=== PATIENT | female | born 1975 | race Caucasian/White ===

== ENCOUNTER → 2018-02-20 16:24 | Outpatient (CLI) | payer BC, SELFPAY ==
[2018-02-25 14:43] LABS: HPV Reflexed? NOT INDICATED
--- OUTSIDE RECORDS SUMMARY | 2018-04-17 16:20 | XMS RPT_ITS ---
:1975 Author Organization [facility] Care Team Providers Name Role Phone Anabelle Pineda Attending Unavailable PROBLEMS PROBLEMS DATE TYPE CONDITION / CODE ATTENDING STATUS SOURCE 02/20/2018 Unknown Z12.4 - Anabelle Pineda Active [place] Encounter for Community screening for Hospital malignant Repository neoplasm of cervix / Z12.4(ICD-10) PROCEDURES PROCEDURES No Procedure Records FoundRESULTS RESULTS PAP I-G W/RFX HRHPV Collected: 02/20/2018 Status: F Source: TEN 2:30 PM [facility] H[facility]PITAL REPOSITORY Order Comment: CYTOLOGY INFORMATION: - CLINICAL INFORMATION: - DATE LMP/MENOPAUSE: 02/02/18 LMP - COLLECTION VIAL: Thin Prep Vial - TINTER PHOTOGRAPH SOURCE: CERVICAL/ENDOCERVICAL - COLLECTION TECHNIQUE: BRUSH/SPATULA Specimen Comment: [id number] Specimen Comment: Source.............Cervix;Endocervix Specimen Comment: LMP / Prev Treat...DCF=[id number] Specimen Comment: No. of containers..01 ThinPrep Vial TYPE CODE TESTS RESULT OUT OF RANGE REFERENCE UNITS LAB L7400.0800 . Normal DIAGN Comment Result Comment: NEGATIVE FOR INTRAEPITHELIAL LESION AND MALIGNANCY. LAB L7400.0900 . Normal ADEQ Comment Result Comment: Satisfactory for evaluation. Endocervical and/or squamous metaplastic cells (endocervical component) are present. LAB L7400.1400 . Normal PERFORM Comment Result Comment: Tigist Pak, Clerk Analyst (ASCP) LAB L7400.2575 . Normal TEST METHOD Comment Result Comment: This liquid based ThinPrep(R) pap test was screened with the use of an image guided system. LAB L7400.2600 . Normal . COMM LAB L7400.2700 . Normal PAPSMR Comment Result Comment: The Pap smear is a screening test designed to aid in the detection of premalignant and malignant conditions of the uterine cervix. It is not a diagnostic procedure and should not be used as the sole means of detecting cervical cancer. Both false-positive and false-negative reports do occur. LAB L7400.2800 . Normal HPV RFLX Comment Result Comment: The HPV DNA reflex criteria were not met with this specimen result therefore, no HPV testing was performed. Performed at: - [facility] [id number] [employer] And [employer] Supervisor: Sonia Cordon MD, Phone: [phone] Performed By: #### L7400.0350 #### [facility] (refer to report for specific site) refer to report for address and phone number ALLERGIES ALLERGIES No Allergies Records FoundENCOUNTERS ENCOUNTERS ADMIT/DISCHARGE ACCOUNT ADMITTING ENCOUNTER LOCATION SOURCE NUMBER CLASS 02/20/2018 [id number] [facility] [address] [place] [address] ing:[facility] Repository PAYERS PAYERS ENCOUNTER GUARANTOR PAYER SUBSCRIBER SOURCE 02/20/2018 Paul [place] Primary Paul [place] [id number] Insurance:[address] Number: : [id number] [id number] Repository [address]: [phone]) Date:5821-12-49[phone] () [id number], [place] [address]ZM: 02/20/2018 Secondary NOT GIVENUNK [place] Insurance:SELF PAY [facility] Number: Effective Repository Date:2018-02-20
== END ==
PROVIDERS: Visit Provider Obstetrics & Gynecology
DX: Z12.4 Encounter for screening for malignant neoplasm of cervix (principal)
CPT/HCPCS: 88175; G0145

== ENCOUNTER → 2018-05-29 14:30 | Outpatient (CLI) | payer BC, SELFPAY ==
--- NOTE | 2018-05-29 14:34 | BI_ITS ---
MAMMOGRAPHY - BILATERAL SCREENING REASON FOR EXAM: Female, 42 years old. Routine annual screening examination. PERTINENT HISTORY: Sister with breast cancer. TECHNIQUE: Digital bilateral breast karlie (3D mammographic acquisition) in the CC and MLO projections. 2-D mediolateral oblique (MLO) and craniocaudad (CC) views of both breasts were obtained. CAD: Full Field Digital Mammography with Computer Added Detection was performed. COMPARISON: Comparison is made with prior study dated June 28, 2016 and April 26, 2015. FINDINGS: Breast Composition: The breasts are heterogeneously dense, which may obscure small masses. There are no dominant masses or suspicious calcifications. Stable small bilateral axillary lymph nodes. No other significant abnormalities are identified. There has been no significant change since the prior study. BI/SCREENING MAMM (CAD), BILAT IMPRESSION: Stable bilateral screening mammogram. Yearly follow-up mammogram recommended. (A) ASSESSMENT CATEGORY: BIRADS Category 2: Benign. A letter regarding these results will be sent to the patient by the facility within 30 days. Approximately 10% of breast cancers are not detected by mammography. A normal mammogram should not delay biopsy of a clinically suspicious abnormality. [id number] Electronically Signed: Jackson Wright, at 8:50 EDT , Service support ,
== END ==
PROVIDERS: Family Provider Family Medicine; PCP Family Medicine; Referring Provider Obstetrics & Gynecology; Visit Provider Obstetrics & Gynecology
DX: Z12.31 Encounter for screening mammogram for malignant neoplasm of breast (principal); Z80.3 Family history of malignant neoplasm of breast
CPT/HCPCS: 77063; 77067

== ENCOUNTER → 2021-07-17 | Outpatient (CLI) | payer BC, SELFPAY ==
[2021-07-17 09:30] LABS: Hemoglobin A1c 4.8 % (3.8-5.6)
[2021-07-17 09:58] LABS: Estradiol 23.1 pg/mL; Follicle Stimulating Hormone 13.6 mIU/mL; Luteinizing Hormone 8.3 mIU/mL; Prolactin 19.5 ng/mL; T4 Free Direct 1.13 ng/dL (0.76-1.46); Thyroid Stim Hormone (TSH) 1.99 uIU/mL (0.358-3.74)
[2021-07-23 17:23] LABS: HPV APTIMA, High Risk Negative (Negative)
== END | disposition home or self-care (01) ==
LOC: WOBLAB 09:00
PROVIDERS: PCP Family Medicine; Visit Provider Student in an Organized Health Care Education/Training Program
DX: Z12.4 Encounter for screening for malignant neoplasm of cervix (principal); N92.6 Irregular menstruation, unspecified
CPT/HCPCS: 36415; 82670; 83001; 83002; 83036; 84146; 84439; 84443; 87624; 88175; G0145

== ENCOUNTER → 2021-08-08 | Outpatient (CLI) | payer BC, SELFPAY ==
--- NOTE | 2021-08-08 07:19 | BI_ITS ---
MAMMOGRAPHY - BILATERAL SCREENING REASON FOR EXAM: Female, 45 years old. Routine annual screening examination. PERTINENT HISTORY: Sister with breast cancer. TECHNIQUE: Digital bilateral breast valente (3D mammographic acquisition) in the CC and MLO projections. 2-D mediolateral oblique (MLO) and craniocaudad (CC) views of both breasts were obtained. CAD: Full Field Digital Mammography with Computer Added Detection was performed. COMPARISON: Comparison is made with prior study dated 05/29/2018 and 06/28/2016. FINDINGS: Breast Composition: The breasts are heterogeneously dense, which may obscure small masses. There are no dominant masses or suspicious calcifications. Stable benign-appearing bilateral axillary lymph nodes. No other significant abnormalities are identified. There has been no significant change since the prior study. BI/SCRN MAMM (CAD)W/VALENTE BILAT IMPRESSION: Stable bilateral screening mammogram. Yearly follow-up mammogram recommended. (A) ASSESSMENT CATEGORY: BIRADS Category 2: Benign. A letter regarding these results will be sent to the patient by the facility within 30 days. Approximately 10% of breast cancers are not detected by mammography. A normal mammogram should not delay biopsy of a clinically suspicious abnormality. [id number] Electronically Signed: Jackson Wright MD at 8:32 EDT ,
== END | disposition home or self-care (01) ==
LOC: OPBI 07:17
PROVIDERS: PCP Family Medicine; Referring Provider Student in an Organized Health Care Education/Training Program; Visit Provider Student in an Organized Health Care Education/Training Program
DX: Z12.31 Encounter for screening mammogram for malignant neoplasm of breast (principal); Z80.3 Family history of malignant neoplasm of breast
CPT/HCPCS: 77063; 77067

== ENCOUNTER → 2021-10-26 | Outpatient (CLI) | payer BC, SELFPAY ==
[2021-10-26 13:39] LABS: Cholesterol 199 mg/dL (200); High Density Lipoprotein 58 mg/dL; Triglycerides 71 mg/dL; Very Low Density Lipoprotein 14 mg/dL (5-40)
== END | disposition home or self-care (01) ==
LOC: LAB 12:01
PROVIDERS: PCP Family Medicine; Referring Provider Family Medicine; Visit Provider Family Medicine
DX: Z00.00 Encounter for general adult medical examination without abnormal findings (principal)
CPT/HCPCS: 36415; 80061

== ENCOUNTER 2021-11-08 07:03 | Day surgery (SDC) | payer BC, SELFPAY ==
[2021-11-02 11:14] LABS: Hematocrit 39.9 % (37-47); Hemoglobin 13.7 g/dL (12.0-15.0); Mean Corp Hgb Conc 34.3 g/dL (32-36); Mean Corpuscular Volume 96.1 fL (81-99); Mean Platelet Vol. 9.2 fl (6.2-12.0); Platelet Count 418 K/mm3 (150-450); RBC Distribution Width CV 12.1 % (11.6-14.6); RBC Distribution Width SD 42.8 fl (35.1-43.9); Red Blood Count 4.15 M/mm3 (4.2-5.4); White Blood Count 4.7 K/mm3 (4.4-11.0)
--- NOTE | 2021-11-08 06:38 | PCM.HP.BLA ---
History and Physical Date of Admission: 11/08/21 HPI: Date of Surgery: 11/08/21 Reason for surgery: abnormal bleeding, uterus and fibroids. ROS: Const: Denies fatigue, fever, hot flashes, insomnia, weight gain and weight loss. CV: Denies irregular heartbeat, pain and shortness of breath. Resp: Denies difficulty breathing, cough and shortness of breath. : Denies abnormal bleeding, bloating, decreased interest in sex and pruritus. Lochia: Patient denies any discharge or clotting. Denies dysuria, frequency, hematuria, nocturia, urgency and urinary leakage. Neuro: Denies dizziness, fainting and seizures. Beto/Lymph: Denies easy bleeding and excessive bleeding. Allergy/Immuno: Denies new allergies. Meds: Calcium 600 + Minerals 600-200 MG-Unit 1 tab by mouth every day Probiotic Acidophilus 1 tab by mouth every day Spironolactone 50 mg 1 tabs by mouth every day Vitamin D3 Complete 1 tab by mouth every day Zyrtec Allergy 10 mg 1 tab by mouth every day Allergies: Penicillins, PCN PMH: None : (2).Parity: Full term (2), Living (2). Menstrual History:Menarche: Started At Age 15. LMP: 10/23/2021.Period Interval: Cycles Irregularly - Q2-4 weeks for 1 to 2 years. Contraceptive Method: vasectomy Surgical History: denies FH: Father: Osteoarthritis. Mother: Hypertension. Sister 1: Breast Cancer - diagnosed at 41 Congenital Heart Disease. Paternal Grandfather: Prostate Cancer - diagnosed at 71. Maternal Grandfather: Myocardial Infarction (NM) - 45, . Reviewed and updated. SH: Personal Habits:Tobacco Use: Patient has never smoked.Alcohol: Rarely consumes alcohol.Drug Use: Denies Drug Use. BP: 118/78 Ht: 64.50 5'4.50 Wt: 154lb 6oz Wt Prior: 152lb 0oz as of 08/14/21 Wt Dif: +2lb 6.0oz BMI: 26.1 LMP: 10/23/21 Exam: Const: Appears healthy and well developed. No signs of acute distress present. Alert and oriented x 3. Patient is well behaved and cooperative. Resp: Respiration rate is normal. Inspection of chest reveals AP is unremarkable and no chest wall deformity. CV: Rate is regular. Rhythm is regular. Abdomen: Abdomen is soft, nontender, and nondistended without guarding, rigidity, rebound tenderness or organomegaly. Assessment/Plan: Planned for hysteroscopy, dilation and curettage, endometrial ablation with Autumn for abnormal uterine bleeding, menorrhagia, irregular menses. Discussed r/b/a. Risks include, but are not limited to: risk of bleeding to the point of transfusion, infection, injury to surrounding tissue (bowel/bladder/uterine perforation), VTE, ICU admission. Pt aware and consented. All questions answered.
[2021-11-08 07:32] LABS: Internal QC Validated? YES +Cl - CLEAR BKGD; Pregnancy, Urine Negative Negative
[2021-11-08 07:35] VITALS: BP 111/69; PULSE 74; RESP 16; TEMP 37.1; O2SAT 99; BMI 25.2
[2021-11-08] MEDS: Lactated Ringers 1,000 ML 15 ML IV (07:44)
--- NOTE | 2021-11-08 08:25 | EMB_PTH ---
PATIENT: GWEN CONTRERAS LOC: [facility] U#:[id number] AGE/SX: 46/F ROOM: RE11/08/[address]: Dr. Yoselyn Cobos DO : 1975 BED: DIS: 11/08/2021 SPEC #: [id number] RECD: 11/08/21 09:55 STATUS: ROSE REJacquelyn #: [id number] MAYRA: 11/08/21 08:[address]: Yoselyn Cobos DEPT: SURGICAL PATHOLOGY RECD BY: Jennifer Barbosa ENTERED: 11/08/21 12:09 SP TYPE: ENDOM BX/C MARIAA DR: Dr. Michelle Beaver MD Tissues: A - Endometrium, NOS B - Endometrium, NOS Procedures: Surgery Specimen Level IV HEADER OPERATION: Hysteroscopy, D&C dustin PRE-OP DIAGNOSIS: Abnormal uterine bleeding, menorrhagia TISSUE SUBMITTED: A. Endometrial currettings, B. Additional endometrial currettings MICROSCOPIC DIAGNOSIS A. 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 B. 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 FLACO 11/09/2021 COMMENT Case has been reviewed in consultation with Dr. Bullock who concurs with the above diagnosis. IDC:AM MICROSCOPIC DESCRIPTION Slides are reviewed. GROSS DESCRIPTION A. Received in formalin is one container labeled with the patient name and designated endometrial currettings. The specimen consists of multiple fragments of hemorrhagic soft tissue mixed with mucoid tissue measuring in aggregate 3 x 2.5 x 0.2 cm. The specimen is totally submitted in one cassette. B. Received in formalin is one container labeled with the patient name and designated additional endometrial currettings. The specimen consists of multiple fragments of hemorrhagic soft tissue mixed with blood clots measuring in aggregate 3 x 2.5 x 0.3 cm. The specimen is totally submitted in one cassette. / FLACO:fawad 11/08/21 TC:5 CPT:95466 x2
--- NOTE | 2021-11-08 08:40 | PCM.OPRPT ---
Report of Operation Date of Procedure: 11/08/21 Pre-Operative Diagnosis: Abnormal uterine bleeding Post-Operative Diagnosis: Abnormal uterine bleeding Surgery/Procedure Performed:: Hysteroscopy, dilation and curettage, attempted endometrial ablation with Autumn Description of Surgical Findings:: Normal-appearing external genitalia. Minimal uterine descensus. Uterus sounded to 10 cm. Long endocervical canal. Type of Anesthesia: MAC Specimen's removed: Endometrial curettings Estimated Blood Loss (mL): 5 cc Fluids Replaced: 800cc Description of Procedure: Indication/risk/benefits: 46-year-old female with abnormal uterine bleeding plan for hysteroscopy, dilation and curettage, endometrial ablation. All risk, benefits, alternatives discussed with patient. Risk include but are not limited to: Risk bleeding twin transfusion, infection, injury to surrounding tissue including bowel/bladder/uterine perforation, VTE, ICU admission. Patient were consented Procedure: Patient taken to the operating room placed under MAC anesthesia. Patient placed in dorsolithotomy position prepped and draped in usual sterile fashion. Weighted speculum placed in posterior vagina and Allis clamps used to grasp anterior lip of the cervix. Cervix sequentially dilated. Uterus sounded to 10 cm. Hysteroscope placed through cervical canal with inspection of endometrial cavity which appeared to have thin endometrial lining slightly narrow cavity. Endometrial curettage completed a 360 degree manner. Autumn device opened. Cavity length initially set to 5 cm. Autumn device array unable to fully deploy. Changed cavity length to both 4-1/2 and 4 cm. Again Autumn device unable to fully deployed. CO2 assessment passed without insufflating cervical balloon. Hysteroscope replaced, no false tracts were noted on inspection. Multiple attempts made to open device array, unable to fully open and deployed. Based on this and immediate CO2 assessment passage without insufflating cervical balloon, decision to not complete ablation was made. Weighted speculum removed, Allis clamp removed. Cervix hemostatic. At the end of the procedure all needle, lap, sponge counts were correct. No urine output measured Complications none
--- NOTE | 2021-11-08 08:41 | DCINST_ITS ---
Discharge Instructions Diet Discharge Diet: No restrictions Activity Discharge Activity: Return to Normal Activity and May Shower May resume sexual activity in: 2 weeks Weight Bearing Status: Weight bearing as tolerated Lifting Restrictions: None Dressing / Incision Call your doctor if you observe: Fever of 101 or Higher, Change in Color, Inability to urinate, Using more than 1 pad per hour, Shortness of breath, Dizziness, Swelling in the ankles, Chest pain and Calf discomfort Follow Up Care Please Follow Up With: Yoselyn Cobos DO When: 1-2 week postoperative visit Test Results: Test results from this visit will be discussed in further detail at your follow- up appointment, if applicable. Discharge Plan Admission Primary Reason for Your Visit: Dilation and curettage Attending Provider: Yoselyn Cobos Primary Care Provider: Michelle Beaver Discharge Orders/Prescriptions Prescriptions: No Action cetirizine [Zyrtec] 10 mg Tablet 10 mg PO DAILY cholecalciferol (vitamin D3) [Vitamin D3] 25 mcg (1,000 unit) Capsule 25 mcg PO DAILY spironolactone 50 mg Tablet 50 mg PO DAILY Referrals / Follow Up: Michelle Beaver MD [Primary Care Provider] - Disposition Disposition (needs filled in before D/C Order can be placed): Home, Self Care
[2021-11-08 09:26] VITALS: BP 100/63; BP 111/69; PULSE 88; RESP 16; TEMP 36.7; O2SAT 98
[2021-11-08 09:30] VITALS: BP 106/70; BP 111/69; PULSE 80; RESP 16; O2SAT 100
[2021-11-08 09:36] VITALS: BP 105/75; BP 111/69; PULSE 74; RESP 16; O2SAT 100
[2021-11-08 09:40] VITALS: BP 111/69; BP 99/60; PULSE 84; RESP 16; TEMP 36.7; O2SAT 100
[2021-11-08 10:25] VITALS: BP 111/69; BP 123/79; PULSE 78; RESP 16; TEMP 36.6; O2SAT 100
== END 2021-11-08 10:28 | disposition home or self-care (01) ==
LOC: SDC 07:06 → AC 07:06
PROVIDERS: Anesthesiology; PCP Family Medicine; Referring Provider Student in an Organized Health Care Education/Training Program; Visit Provider Student in an Organized Health Care Education/Training Program
PROC: 0U5B8ZZ Destruction of Endometrium, Via Natural or Artificial Opening Endoscopic (ICD-10-PCS; CPT 58558; principal; 2021-11-08 08:10)
DX: N92.0 Excessive and frequent menstruation with regular cycle (principal)
CPT/HCPCS: 58558; 00952; 36415; 81025; 85027; 86850; 86900; 86901; 88305; J7120; J2405

== ENCOUNTER → 2021-11-23 | Outpatient (CLI) | payer BC, SELFPAY ==
[2021-12-01 17:17] LABS: HPV APTIMA, High Risk Negative (Negative)
== END | disposition home or self-care (01) ==
LOC: LABSPEC 13:59
PROVIDERS: PCP Family Medicine; Visit Provider Student in an Organized Health Care Education/Training Program
DX: Z12.4 Encounter for screening for malignant neoplasm of cervix (principal)
CPT/HCPCS: 87624; 88175; G0145

== ENCOUNTER → 2023-08-29 | Outpatient (CLI) | payer BC, SELFPAY ==
--- NOTE | 2023-08-29 10:49 | BI_ITS ---
MAMMOGRAPHY - BILATERAL SCREENING REASON FOR EXAM: Female, 47 years old. Routine annual screening examination. PERTINENT HISTORY: Sister with breast cancer. TECHNIQUE: Digital bilateral breast valente (3D mammographic acquisition) in the CC and MLO projections. 2-D mediolateral oblique (MLO) and craniocaudad (CC) views of both breasts were obtained. CAD: Full Field Digital Mammography with Computer Added Detection was performed. COMPARISON: Comparison is made with prior study August 08, 2021 and May 29, 2018. FINDINGS: Breast Composition: The breasts are heterogeneously dense, which may obscure small masses. There are no dominant masses or suspicious calcifications. Stable benign-appearing bilateral axillary lymph nodes. No other significant abnormalities are identified. There has been no significant change since the prior study. BI/SCRN MAMM (CAD)W/VALENTE BILAT IMPRESSION: Stable bilateral screening mammogram. Yearly follow-up mammogram recommended. (A) ASSESSMENT CATEGORY: BIRADS Category 2: Benign. A letter regarding these results will be sent to the patient by the facility within 30 days. Approximately 10% of breast cancers are not detected by mammography. A normal mammogram should not delay biopsy of a clinically suspicious abnormality. [id number] Electronically Signed: Jackson Wright MD at 11:48 EDT ,
== END | disposition home or self-care (01) ==
LOC: OPBI 10:48
PROVIDERS: PCP Family Medicine; Referring Provider Family Medicine; Visit Provider Family Medicine
DX: Z12.31 Encounter for screening mammogram for malignant neoplasm of breast (principal)
CPT/HCPCS: 77063; 77067

== ENCOUNTER 2023-10-24 05:36 | Day surgery (SDC) | payer BC, SELFPAY ==
[2023-10-24] VITALS (8 sets, daily range): BP systolic 97–131; BP diastolic 57–79; PULSE 74–88; RESP 16; TEMP 36.8–37.4; O2SAT 98–100; BMI 26.2
[2023-10-24] MEDS: Lactated Ringers 1,000 ML 15 ML IV (06:03)
[2023-10-24 06:07] LABS: Internal QC Validated? YES +Cl - CLEAR BKGD; Pregnancy, Urine Negative Negative; Record Kit Lot#,Urine Preg 772476
--- NOTE | 2023-10-24 06:24 | PCM.PRE.AN2 ---
ASA Classification* ASA Classification ASA Classification: 1 Assessment & Plan Anesthesia* Anesthesia Assessment Anesthesia Assessment: Discussed sedation and/or anesthesia options, risks, benefits, and alternatives with patient/parents/legal guardian/POA. Questions invited. The patient/parents/legal guardian/POA seems to understand and agrees to proceed with anesthesia plan. Reviewed the physical assessment, medical history, allergy history and patient home medications list prior to surgery/procedure/anesthetic and documented any changes. Performed airway and anesthesia risk assessments. Anesthesia Type Anesthesia Type: MAC History Source History Obtained from:: Patient and Chart Anesthesia Focused Assessment* Temperature: 98.7 F Pulse Rate: 78 Blood Pressure: 131/79 Respiratory Rate: 16 Pulse Ox: 98 Oxygen Delivery Method: Room Air Airway Assessment Mouth opens: >3 cm Mallampati Score: II Teeth Condition: Caps/Crowns (Left lower molars and is tight ) Neck Range of motion (ROM): Full ROM Focused Labs Anesthesia Preop lab: CBC WBC 4.7 K/mm3 (4.4-11.0) 11/02/21 09:46 RBC 4.15 M/mm3 (4.2-5.4) L 11/02/21 09:46 Hgb 13.7 g/dL (12.0-15.0) 11/02/21 09:46 Hct 39.9 % (37-47) 11/02/21 09:46 Plt Count 418 K/mm3 (150-450) 11/02/21 09:46 CHEMISTRY Glucose 69 mg/dL (70-110) L 07/07/13 11:18 TSH 1.99 uIU/mL (0.358-3.74) 07/17/21 09:01 COAG Urine Test Negative Negative 10/24/23 05:45 Pre-Assessment Diagnosis/Proposed Procedure Planned Operative Procedure(s): CSCOPE Anesthesia History Anesthesia History - knocker out: Anesthesia History - knocker out Hx Hospitalization No 10/21/23 10:02 Any Problems With Anesthesia No 10/21/23 10:02 Cholinesterase deficiency No 10/21/23 10:02 You/Your Family Experience No 10/21/23 10:02 fever (hyperthermia) with Relationship Recent Exposure to Contagious No 10/24/23 05:55 Disease Does patient have nerve No 10/21/23 10:02 stimulator Patient instructed to have device shut off --Does patient have Pacemaker No 10/24/23 05:55 or ICD? When Was Last Pacemaker Check QUESTION #4 FULL TEXT: You/Your Family Experience fever (hyperthermia) with Anesthesia Last Oral Intake Last Oral intake: Last Oral Intake NPO since 23:00 10/24/23 05:55 Meds taken in AM with sips of No 10/24/23 05:55 water? Meds patient instructed to take am of surgery PONV PONV - knocker out: PONV - knocker out Female Yes 10/21/23 10:02 HX of Motion Sickness Yes 10/21/23 10:02 HX of N/V After Surgery No 10/21/23 10:02 Non-Smoker Yes 10/21/23 10:02 Duration of Surgery greater No 10/21/23 10:02 than 60 minutes Number of Risk Factors 3 10/21/23 10:02 PONV Score Moderate Risk 10/21/23 10:02 Height & Weight Height & Weight: Anesthesia: Height & Weight Height 5 ft 5 in 10/24/23 05:55 Weight: 71.4 kg 10/24/23 05:55 Body Mass Index (BMI) 26.2 10/24/23 05:55 Respiratory Assessment Respiratory Assessment - knocker out: Respiratory Tract Infection Hx - knocker out Hx Respiratory Tract Infection No 10/21/23 10:02 STOP Sleep Apnea STOP Sleep Apnea - knocker out: STOP Sleep Apnea - knocker out Hx Hypertension No 10/21/23 10:02 Hx Sleep Apnea No 10/21/23 10:02 CPAP No 11/08/21 09:26 BIPAP Do you snore loudly (louder No 10/21/23 10:02 than talking or can be heard Do you often feel tired/ No 10/21/23 10:02 fatigued/ sleepy during daytime? Has anyone observed you stop No 10/21/23 10:02 breathing during sleep? STOP Results Negative 10/21/23 10:02 QUESTION #5 FULL TEXT : Do you snore loudly (louder than talking or can be heard through closed doors)? 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 Specify any problems Hx of Preganancy in last 3 N/A 10/21/23 10:02 Months Nurse Filling Out Transfusion NBUCHER 10/21/23 10:02 & Questions: Date: 10/21/23 10/21/23 10:02 Time: 10:04 10/21/23 10:02 Patient unable to answer at this time (ie. confused, unrespo /Reproduction History /Reproductive History - knocker out: /Reproductive Hx- knocker out Hx Now No 10/21/23 10:02 Gestational Age (in weeks): EDC: Hx Hx Para Hx Section SAB No 10/21/23 10:02 Active Medications Active Medications: Current Medications Generic Name Dose Route Start Last Admin Trade Name Freq PRN Reason Stop Dose Admin Lactated Ringer's 1,000 mls @ 15 mls/hr 10/24/23 05:45 10/24/23 06:03 IV 15 mls/hr .Q48H TOMI Administration PFSH Medical History Wears contact lenses Wears glasses Arthritis Migraine headache History of IBS Non-smoker History of stress test History of arm fracture (~1991) Home Medications ?Medication ?Instructions ?Recorded ?Last Taken ?Type cetirizine 10 mg tablet (Zyrtec) 10 mg PO DAILY 10/30/21 11/07/21 History vitamin D3 125 mcg (5,000 1 cap PO DAILY 10/21/23 Unknown History unit)-vitamin K2 100 mcg capsule Allergy/AdvReac Type Severity Reaction Status Date / Time adhesive Allergy Rash Verified 10/24/23 05:54 lidocaine Allergy Itching Verified 10/24/23 05:54 Penicillins (PCN) Allergy Anaphylaxis Verified 10/24/23 05:54 Surgical History Hx of colonoscopy Hx of wisdom tooth extraction Social History household members: spouse current occupational status: employed current occupation: [employer] Smoking Status: Never smoker substance use type: does not use Review of Systems (Anesthesia) ROS Narrative System reviewed and no additional complaints, except as documented.
--- NOTE | 2023-10-24 06:42 | PCM.HP.STD ---
HPI - General General Date of Admission: 10/24/23 Date of Service: 10/24/23 Chief Complaint: Screening colonoscopy HPI Narrative GWEN CONTRERAS, is a 48 F who presents here for screening colonoscopy today. She has never had a colonoscopy in the past. She does not take any medicines on a daily basis. Overall she is in very good health. [facility] Medical History Wears contact lenses Wears glasses Arthritis Migraine headache History of IBS Non-smoker History of stress test History of arm fracture (~1991) Home Medications ?Medication ?Instructions ?Recorded ?Last Taken ?Type cetirizine 10 mg tablet (Zyrtec) 10 mg PO DAILY 10/30/21 11/07/21 History vitamin D3 125 mcg (5,000 1 cap PO DAILY 10/21/23 Unknown History unit)-vitamin K2 100 mcg capsule Allergy/AdvReac Type Severity Reaction Status Date / Time adhesive Allergy Rash Verified 10/24/23 05:54 lidocaine Allergy Itching Verified 10/24/23 05:54 Penicillins (PCN) Allergy Anaphylaxis Verified 10/24/23 05:54 Surgical History Hx of colonoscopy Hx of wisdom tooth extraction Social History household members: spouse current occupational status: employed current occupation: [employer] Smoking Status: Never smoker substance use type: does not use ROS Review of Systems ROS Unobtainable: other Constitutional Constitutional: Denies fatigue, fever(s), poor appetite, weight gain or weight loss ENT HEENT: Denies mouth lesions Cardiovascular Cardiovascular: Denies abdominal bloating, abdominal edema or abdominal pain Respiratory/Chest Respiratory/Chest: Denies change in mental status, change in phlegm color, chest congestion or chest tightness Gastrointestinal Gastrointestinal: Denies belching, bloating, change in bowel habits, change in stool character, chewing difficulty, coffee ground emesis, constipation, cramping, diarrhea, dyspepsia, dysphagia, early satiety, excessive flatus, fecal incontinence, heartburn, hematemesis, hematochezia, hemorrhoids, loose stools, melena, nausea, odynophagia, rectal bleeding, tenesmus, vomiting or weight changes Genitourinary Genitourinary: Denies abdominal discomfort, burning urination or itching Musculoskeletal Musculoskeletal: Reports as per HPI; Denies muscle weakness or myalgias Integumentary Integumentary: Denies jaundice Neurologic Neurologic: Denies lack of coordination or weakness Psychiatric Psychiatric: Denies confusion, depression, memory loss, mood swings, paranoia or suicidal ideation Endocrine Endocrinology: Denies systems reviewed and no addt'l complaints, except as documented Hematologic/Lymphatic Hematologic/Lymphatic: Denies anemia, easy bleeding, easy bruising or lymphadenopathy Allergic/Immunologic Allergic/Immunologic: Denies systems reviewed and no addt'l complaints, except as documented Vital Signs Vital Signs Vital Signs: 10/24/23 05:55 10/24/23 05:55 10/24/23 06:33 Temperature 98.7 F 98.7 F Temperature Source Temporal Pulse Rate 78 78 Respiratory Rate 16 16 Respiratory Pattern Normal Blood Pressure 131/79 H 131/79 H Blood Pressure Mean 96 Blood Pressure Source Monitor Blood Pressure Position Semi-Fowlers Blood Pressure Location Left Arm Pulse Ox 98 98 Oxygen Delivery Method Room Air Room Air Weight Weight: 157 lb 6.561 oz Body Mass Index (BMI) 26.2 Physical Exam Const alert General Appearance: cooperative Orientation / Consciousness: oriented to person HEENT hearing grossly normal bilaterally Head and Scalp: normal to inspection Face and Sinus: face symmetric Nose: external nose normal Mouth: oral and palatal mucosa normal Eyes conjunctivae normal General Eye: normal appearance of both eyes Neck full ROM General: normal visual inspection Lymph Lymphatic: no lymphadenopathy noted Chest inspection of chest normal and palpation of chest normal Chest: symmetrical chest wall rise Resp normal respiratory effort Effort and Inspection: able to speak in complete sentences Cardio regular rate GI non-distended Percussion: normal to percussion Rectal Exam: deferred Neuro Speech: speech normal Gait (Neuro): normal gait Results Lab / Micro Data Labs: Laboratory Results - last 24 hr 10/24/23 05:45: Urine Test Negative Assessment & Plan Assessment/Plan (1) Encounter for screening for malignant neoplasm of colon: PLAN: She was explained alternatives, risk, benefits including not withstanding bleeding, infection, sepsis, perforation, need for emergent urgent . She will have an ASA of 3.
--- NOTE | 2023-10-24 07:04 | OP.COLON_ITS ---
Patient Name: Breanna Coffman Procedure Date: 10/24/2023 6:20 AM Date of : 1975 Age: 48 Procedure: Colonoscopy Indications: Screening for colorectal malignant neoplasm Providers: Jd Garcia DO Referring MD: Michelle Beaver Medicines: Monitored Anesthesia Care Patient Profile: This is a 48 year old female. Refer to note in patient chart for documentation of history and physical. Last Colonoscopy: several years ago. Complications: No immediate complications. Procedure: Pre-Anesthesia Assessment: - Prior to the procedure, a History and Physical was performed, and patient medications and allergies were reviewed. The patient is competent. The risks and benefits of the procedure and the sedation options and risks were discussed with the patient. All questions were answered and informed consent was obtained. Patient identification and proposed procedure were verified by the physician in the pre-procedure area. Mental Status Examination: alert and oriented. Airway Examination: normal oropharyngeal airway and neck mobility. Respiratory Examination: clear to auscultation. CV Examination: normal. Prophylactic Antibiotics: The patient does not require prophylactic antibiotics. Prior Anticoagulants: The patient has taken no anticoagulant or antiplatelet agents. ASA Grade Assessment: II - A patient with mild systemic disease. After reviewing the risks and benefits, the patient was deemed in satisfactory condition to undergo the procedure. The anesthesia plan was to use monitored anesthesia care (MAC). Immediately prior to administration of medications, the patient was re-assessed for adequacy to receive sedatives. The heart rate, respiratory rate, oxygen saturations, blood pressure, adequacy of pulmonary ventilation, and response to care were monitored throughout the procedure. The physical status of the patient was re-assessed after the procedure. After I obtained informed consent, the scope was passed under direct vision. Throughout the procedure, the patient's blood pressure, pulse, and oxygen saturations were monitored continuously. The Colonoscope was introduced through the anus and advanced to the cecum, identified by appendiceal orifice and ileocecal valve. The colonoscopy was performed without difficulty. The patient tolerated the procedure well. The quality of the bowel preparation was adequate. The ileocecal valve, appendiceal orifice, and rectum were photographed. Scope In: 6:49:03 AM Scope Withdrawal Time 0 hours 6 minutes 35 seconds Scope Out: 6:59:21 AM Total Procedure Duration Time 0 hours 10 minutes 18 seconds Findings: The perianal and digital rectal examinations were normal. The entire examined colon appeared normal on direct and retroflexion views. Impression: - The entire examined colon is normal on direct and retroflexion views. - No specimens collected. Recommendation: - Discharge patient to home. - Resume previous diet. - Continue present medications. - Repeat colonoscopy in 10 years for screening purposes. Procedure Code(s): --- Professional --- G0121, Colorectal cancer screening; colonoscopy on individual not meeting criteria for high risk CPT copyright 2021 [employer]. All rights reserved. The codes documented in this report are preliminary and upon freight rate specialist review may be revised to meet current compliance requirements. Jd Garcia DO 10/24/2023 7:03:50 AM This report has been signed electronically. Number of Addenda: 0 Note Initiated On: 10/24/2023 6:20 AM
--- NOTE | 2023-10-24 07:05 | OP.CCLET_ITS ---
10/24/2023 Michelle Beaver [place] [id number] [address] Re : Colonoscopy procedure for Breanna Coffman Dear Dr. Beaver This procedure was performed on Tuesday, October 24, 2023. My impressions and recommendations are as follows: Impressions : - The entire examined colon is normal on direct and retroflexion views. - No specimens collected. Recommendations : - Discharge patient to home. - Resume previous diet. - Continue present medications. - Repeat colonoscopy in 10 years for screening purposes. My findings are described in the full procedure note, which is enclosed. If I can be of further assistance, please feel free to contact me at . Sincerely, Jd Friend, 10/24/2023 7:03:50 AM This report has been signed electronically.
--- NOTE | 2023-10-24 07:11 | PCM.POST.ANE ---
Anesthesia: Postop Eval I Current Vital Signs Temperature: 98.2 F Pulse Rate: 88 Blood Pressure: 97/57 Respiratory Rate: 16 Pulse Ox: 100 Oxygen Delivery Method: Room Air Assessment Airway patent: Yes Spontaneous unlabored respirations: Yes Mental status: Awake and Calm nausea: No Vomiting: No Anesthesia Complication: No Fluid Hydration Crystalloid volume administer (ml): 600 Total IV fluid infused: 600 Progress Note Anesthesia document: Postop Eval 1 completed: Yes
--- NOTE | 2023-10-24 07:49 | PCM.POSTANE2 ---
Anesthesia Postop Eval I Sum Postop Eval Completion status Anesthesia document: Postop Eval 1 completed: Yes Anesthesia Postop Eval I Summary Anesthesia Postop Eval I Summary: Anesthesia Postop Eval I: Assessment Summary Airway patent Yes 10/24/23 07:12 [email or web address] Spontaneous unlabored Yes 10/24/23 07:12 [email or web address] respirations Mental status Awake,Calm 10/24/23 07:12 [email or web address] nausea No 10/24/23 07:12 [email or web address] Vomiting No 10/24/23 07:12 [email or web address] Anesthesia Postop Eval I: Fluid Summary Crystalloid volume administer 600 10/24/23 07:12 [email or web address] (ml) Colloids volume administered ( ml) Blood Product volume administered (ml) Total IV fluid infused 600 10/24/23 07:12 [email or web address] Anesthesia Postop Eval I: Summary Notes Anesthesia Complication No 10/24/23 07:12 [email or web address] Anesthesia Complication Comment: Post-operative progress note Anesthesia: Postop Eval II Evaluation Mental status: Awake Pain Level: 0 nausea: No Vomiting: No Complications Anesthesia Complication: No
== END 2023-10-24 07:45 | disposition home or self-care (01) ==
LOC: EN 05:37 → AC 05:38
PROVIDERS: Anesthesiology; PCP Family Medicine; Referring Provider Family Medicine; Visit Provider Internal Medicine Gastroenterology
PROC: 0DJD8ZZ Inspection of Lower Intestinal Tract, Via Natural or Artificial Opening Endoscopic (ICD-10-PCS; CPT 45378; principal; 2023-10-24 06:25)
DX: Z12.11 Encounter for screening for malignant neoplasm of colon (principal)
CPT/HCPCS: 45378; 81025; J7120; J2405

== ENCOUNTER → 2023-12-19 | Outpatient (CLI) | payer BC, SELFPAY ==
--- NOTE | 2023-12-19 16:30 | LES_PTH ---
PATIENT: GWEN CONTRERAS LOC: [facility] U#:[id number] AGE/SX: 48/F ROOM: RE12/19/[address]: Dr. Emile Hernandez MD : 1975 BED: DIS: 12/19/2023 SPEC #: [id number] RECD: 12/19/23 17:20 STATUS: ROSE MARINA #: [id number] MAYRA: 12/19/23 16:[address]: Emile Hernandez DEPT: SURGICAL PATHOLOGY RECD BY: Jennifer Barbosa ENTERED: 12/22/23 10:40 SP TYPE: Lesion OTHR DR: Dr. Michelle Beaver MD Tissues: Skin of eyelid, NOS Procedures: Surgery Specimen Level IV HEADER OPERATION: Conjunctival lesion of right eye PRE-OP DIAGNOSIS: Conjunctival lesion of right eye TISSUE SUBMITTED: Conjunctival lesion of right eye MICROSCOPIC DIAGNOSIS Conjunctival lesion of right eye, biopsy: Elastosis, vascular ectasia and recent hemorrhage. AM.mr 12/23/2023 COMMENT Case has been reviewed in consultation with Dr. Brown who concurs with the above diagnosis. IDC:FLACO MICROSCOPIC DESCRIPTION Slides are reviewed. There is no evidence of malignancy. GROSS DESCRIPTION Received in fixative is one container labeled with the patient's name and designated Right eye. The specimen consists of two fragments of ayala-white skin that in aggregate measure 0.3 x 0.3 x 0.1 cm. The specimen is totally submitted in one cassette. 12/22/2023 TC:5 CPT:70779
== END | disposition home or self-care (01) ==
PROVIDERS: PCP Family Medicine; Referring Provider Ophthalmology; Visit Provider Ophthalmology
DX: I77.9 Disorder of arteries and arterioles, unspecified (principal)
CPT/HCPCS: 88305